=== PATIENT | female | born 1940 | race Caucasian/White ===

== ENCOUNTER 2017-03-28 21:43 | Observation (INO) ==
[2017-03-28] MEDS ORDERED: SALINE FLUSH 10ml SYRINGE IVF PRN (22:15)
--- NOTE | 2017-03-28 22:20 | Emergency Department Report ---
Weakness HPI - General Chief complaint: Weakness <[facility] 03/29/17 04:01> Stated complaint: Unable to walk, slow speaking [facility]> Time Seen by Provider: 03/28/17 22:02 <[facility] 04:01> Source: patient, family <Mariely Downing Campos 03/28/17 22:25> Mode of arrival: wheelchair <Mariely Downing Karl 03/28/17 22:25> Limitations: no limitations <SalinaMariely Karl Campos 03/28/17 22:25> - History of Present Illness HPI Narrative: Pt presents with weakness for the last 2 days and that she has been unable to stand or walk and was having to crawl to get around the house. the sister in law reports she had come over 2 days ago to use their blood pressure cuff as pt' s was not working and BP was 240 systolic. Pt called her PCP who siad they did not have time to see her. Sister in law reports having to help pt out of chair yesterday and today weakness has become even worse. <Mariely Downing 03/28/17 22:25> MD Complaint: generalized weakness <Mariely Downing 03/28/17 22:25> Onset (ago): day(s) <Mariely Downing 03/28/17 22:25> Duration: constant <Mariely Downing 03/28/17 22:25> Location: generalized <Mariely Downing 03/28/17 22:25> Severity: severe <Mariely Downing 03/28/17 22:25> Relieving factors: none <Mariely Downing 03/28/17 22:25> Exacerbating factors: none <Mariely Downing 03/28/17 22:25> Associated symptoms: denies other symptoms <Mariely Downing 03/28/17 22: 25> - Related Data Home Medications Medication Instructions Recorded Confirmed Fluoxetine HCl 40 mg PO DAILY #0 01/03/10 10/13/16 Vitamin E Mixed [Vitamin E] 400 unit PO DAILY #0 03/15/14 10/13/16 Codeine/Butalbital/ASA/Caffein 1 cap PO QID PRN #0 12/08/14 10/13/16 [Fiorinal with Codeine #3 Cap] Fluticasone Propionate [Flonase 1 puff EA NOSTRIL DAILY PRN #0 12/08/14 10/13/16 Allergy Relief] Vitamin B Complex Vit C No.3 [B 1 tab PO DAILY #0 12/08/14 10/13/16 Complex with Vitamin C] Calcium Carbonate [Calcium] 500 mg PO DAILY #0 10/06/15 10/13/16 Advil (Ibuprofen) 200 mg capsule 400 mg PO BID PRN #0 cap 10/06/16 10/13/16 Maxzide-25mg (triamterene 37.5 1 tab-cap PO QAM tab 10/06/16 10/13/16 mg-hydrochlorothiazide 25 mg) tablet aspirin 81 mg tablet,delayed 81 mg PO DAILY tab 10/06/16 10/13/16 release cholecalciferol (vitamin D3) 2,000 2,000 unit PO DAILY cap 10/06/16 10/13/16 unit capsule metoclopramide 5 mg tablet 5 mg PO .COMPLEX PRN 10/06/16 10/13/16 omega-3 fatty acids 1,000 mg 2,000 mg PO BID #0 cap 10/06/16 10/13/16 capsule Meclizine HCl [Motion Sickness 25 mg PO 03/28/17 Relief] Previous Rx's Medication Instructions Recorded Nitrostat (nitroglycerin) 0.4 mg 0.4 mg SL Q5M PRN #25 tab 10/06/16 sublingual tablet Xanax (alprazolam) 0.5 mg tablet 0.5 mg PO TID PRN #30 tab 10/06/16 Cozaar (losartan) 50 mg tablet 50 mg PO BID #180 tab 11/13/16 Calan SR (verapamil ER (SR)) 180 180 mg PO BID #180 tab 01/04/17 mg tablet amitriptyline 25 mg tablet 25 mg PO HS #90 tab 01/04/17 Lopressor (metoprolol tartrate) 50 mg PO BID #90 tab 02/12/17 100 mg tablet Zocor (simvastatin) 40 mg tablet 40 mg PO HS #90 tab 03/07/17 <eb 03/29/17 04:01> Allergies Allergy/AdvReac Type Severity Reaction Status Date / Time gabapentin Allergy Intermediate Verified 11/06/16 13:56 hydrocodone Allergy Intermediate rash Verified 11/06/16 13:33 MELITA Inhibitors Allergy Unknown Verified 11/06/16 13:33 atorvastatin Allergy Unknown Verified 11/06/16 13:33 ezetimibe Allergy Unknown Verified 11/06/16 13:33 levofloxacin [From Levaquin] AdvReac Intermediate tendonitis Verified 11/06/16 13:33 Sulfa (Sulfonamide AdvReac Intermediate GI issues Verified 11/06/16 13:33 Antibiotics) tramadol AdvReac Intermediate syncope?, Verified 11/06/16 13:33 nausea <03/29/17 04:01> Review of Systems All systems: reviewed and negative except as stated <Mariely Downing 22:25> Constitutional: Reports: as per HPI <Mariely Downing 03/28/17 22:25> Musculoskeletal: Reports: as per HPI <Mariely Downing 03/28/17 22:25> Neurological: Reports: as per HPI <Mariely Downing 03/28/17 22:25> [facility] Patient Stated Medical History Hearing Loss Yes Angina Yes Coronary Artery Disease Yes Hypertension Yes Valvular Heart Disease Yes: MVP Pneumonia Yes Gastroesophageal Reflux Yes Disease Other GI Yes: CONSTIPATION Hx Incontinence Yes: DRIBBLING Hx Urinary Tract Infection Yes Other Hematologic Yes: OSTEOPENIA Other Musculoskeletal Yes: OSTEOPENIA Sepsis Yes Depression Yes Post Menopausal Yes Clinic Medical History Renal insufficiency (Chronic Medical) Depression (Chronic Medical) Hx of thyroid nodule (Chronic Medical) right MVP (mitral valve prolapse) (Chronic Medical) Osteopenia (Chronic Medical) Hypercholesterolemia (Chronic Medical) HTN (hypertension) (Chronic Medical) CAD (coronary artery disease) (Chronic Medical) mid LAD lesion <03/29/17 04:01> Surgical History: D&C 1971. Tubal ligation 1972. CABG LAD 04/2007 <Mariely Downing 03/28/17 22:25> Family History: Family History Father , at age 83 Prostate cancer metastatic Mother , at age 51 Myocardial infarction Unknown CAD (coronary artery disease) Brother HTN (hypertension) Sister HTN (hypertension) Diabetes mellitus Brother Prostate cancer <August,Edson - 03/29/17 04:01> - Social History Smoking status: Never smoker <Mariely Downing 03/28/17 22:25> Physical Exam - Limitations Limitations: no limitations <Mariely Downing 03/28/17 22:25> - General General appearance: alert, lethargic <Mariely Downing 03/28/17 22:25> - Normal Exams: Head:: Normocephalic without trauma <Mariely Downing 03/28/17 22:25> Eyes:: Pupils are PERRLA w/ EOMI <Mariely Downing 03/28/17 22:25> Neck:: Full range of motion, without adenopathy <Mariely Downing [facility] 22:25> Chest/Respirations:: Clear all nicholas, with good airflow, and symmetry bilaterally <Mariely Downing [facility] 03/28/17 22:25> Cardiovascular:: Regular rate and rhythm, without murmur or gallop, Pulses 2+ all extremities, capillary refill, <2 seconds all extremities <Mariely Downing 03/28/17 22:25> Abdomen:: Bowel sounds positive, soft, non-tender, non-distended <Mariely Downing [facility] 03/28/17 22:25> Musculoskeletal:: No tenderness, or deformity noted, good range of motion, all extremities (equal leather currier strength) <Mariely Downing 03/28/17 22:25> Integumentary:: No rashes (pale, warm ,dry) <Mariely Downing [facility] 03/28/17 22: 25> Neurological:: Patient is alert (speech is slow but clear), and oriented, cranial nerves, motor/sensory/cerebellar, exams w/o gross deficits, to observation <Mariely Downing 03/28/17 22:25> Psychiatric:: Patient exhibits, appropriate attention, emotion and affect < Mariely Downing 03/28/17 22:25> Course - Consultations Consultation #1: [place] Telemed: Will admit pt for continued observation and to complete CVA work up. <03/29/17 03:57> Time: 03:41 <eb - 03/29/17 03:41> Vital Signs Temperature 97.9 F 03/28/17 21:43 Pulse Rate 56 L 03/28/17 21:43 Respiratory Rate 20 03/28/17 21:43 Blood Pressure 174/81 H 03/28/17 21:43 Pulse Oximetry 97 03/28/17 21:43 Temperature 97.9 F 03/28/17 21:43 Pulse Rate 54 L 03/29/17 02:46 Respiratory Rate 16 03/29/17 02:46 Blood Pressure 174/80 H 03/29/17 02:46 Pulse Oximetry 99 03/29/17 01:45 <Mariely Downing - 03/28/17 22:17> Vital Signs Temperature 97.9 F 03/28/17 21:43 Pulse Rate 56 L 03/28/17 21:43 Respiratory Rate 20 03/28/17 21:43 Blood Pressure 174/81 H 03/28/17 21:43 Pulse Oximetry 97 03/28/17 21:43 Temperature 97.9 F 03/28/17 21:43 Pulse Rate 54 L 03/29/17 02:46 Respiratory Rate 16 03/29/17 02:46 Blood Pressure 174/80 H 03/29/17 02:46 Pulse Oximetry 99 03/29/17 01:45 < - 03/28/17 23:16> Weakness - MDM Narrative Medical decision making narrative: Pt with no obvious cause of acute weakness. Weakness is not focal. No evidence of acute infx, UTI, or electrolyte disturbance. Head CT shows no acute pathology. CXR shows a possible cardiac effusion. Will obtain Chest CT to eval for occult PNA vs effusion. After review of all of pts Hx, PE, labs, and rads, no obvious cause of pts sx found. Strong concern still for abrupt onset of weakness and progression. Discussed with hospitalist, who will admit to complete workup for CVA as most likely dx. Discussed with family who agree with POC and are grateful that pt is being worked up further. <[facility] 03/29/17 04:01> - Differential Diagnosis Differential diagnosis: Likely: anemia, hypoglycemia, hypothyroidism, dehydration <Mariely Downing/20/17 22:25> - Lab Data Result diagrams: 03/28/17 22:38 03/28/17 22:38 <Edson Sewell - 03/29/17 04:01> Lab Results 03/28/17 03/28/17 03/28/17 Range/Units 22:38 22:38 22:38 WBC 7.9 (4.5-11.0) T/MM3 Corrected WBC Cancelled RBC 4.35 (4.00-5.20) M/MM3 Hgb 13.5 (12-16) GM/DL Hct 41.0 (36-46) % MCV 94.3 (80-100) UM3 MCH 31.0 (26-34) UUG MCHC 32.9 (31-37) GM/DL RDW Std Deviation 40.0 (36.9-50.2) FL Plt Count 212 (130-400) T/MM3 MPV 9.5 (9.4-12.4) UM3 Immature Gran % (Auto) 0.1 (0.0-0.5) % Neut % (Auto) 53.0 (33-66) % Lymph % (Auto) 36.7 (23-45) % Forrest % (Auto) 7.5 (0-9.0) % Eos % (Auto) 2.2 (0-4) % Baso % (Auto) 0.5 (0-2) % Neut # (Auto) 4.1 (1.8-7.7) T/MM3 Lymph # (Auto) 2.8 (1-4.8) T/MM3 Forrest # (Auto) 0.6 (0-0.8) T/MM3 Eos # (Auto) 0.2 (0-0.5) T/MM3 Baso # (Auto) 0.0 (0-0.2) T/MM3 Abs Immat Gran (auto) 0.01 (0.00-0.03) T/MM3 Neutrophils % (Manual) Cancelled Band Neutrophils % Cancelled Lymphocytes % (Manual) Cancelled Reactive Lymphs % Cancelled Monocytes % (Manual) Cancelled Eosinophils % (Manual) Cancelled Basophils % (Manual) Cancelled Metamyelocytes % Cancelled Myelocytes % Cancelled Promyelocytes % Cancelled Blast Cells % Cancelled Neutrophils # (Manual) Cancelled Band Neutrophils # Cancelled Lymphocytes # (Manual) Cancelled Abs React Lymphs (Man) Cancelled Monocytes # (Manual) Cancelled Eosinophils # (Manual) Cancelled Basophils # (Manual) Cancelled Metamyelocytes # Cancelled Myelocytes # Cancelled Promyelocytes # Cancelled Plasma Cell # (Manual) Cancelled Nucleated RBCs Cancelled Hypersegmented Neuts Cancelled Hyposegmented Neuts Cancelled Hypogranular Neuts Cancelled Prolymphocytes Cancelled Blast Cells # Cancelled Plasma Cells Cancelled Smudge Cells Cancelled Toxic Granulation Cancelled Toxic Vacuolation Cancelled Dohle Bodies Cancelled Leila Rods Cancelled Clumped Platelets Cancelled Giant Platelets Cancelled Dimorphic RBCs Cancelled Polychromasia Cancelled Hypochromasia Cancelled Poikilocytosis Cancelled Basophilic Stippling Cancelled Anisocytosis Cancelled Microcytosis Cancelled Macrocytosis Cancelled Spherocytes Cancelled Pappenheimer Bodies Cancelled Sickle Cells Cancelled Target Cells Cancelled Tear Drop Cells Cancelled Ovalocytes Cancelled Stomatocytes Cancelled Helmet Cells Cancelled Segura-Spearfish Bodies Cancelled [place] Rings Cancelled [place] Cells Cancelled Crenated Cell Cancelled Acanthocytes (Spur) Cancelled Rouleaux Cancelled Schistocytes Cancelled RBC Morph Comment Cancelled Turbidity < 20 (0-20) Sodium 143 (134-144) MEQ/L Potassium 3.6 (3.6-5) MEQ/L Chloride 104 (98-107) MEQ/L Carbon Dioxide 27 (22-30) MEQ/L Anion Gap 12 (5-15) MEQ/L BUN 14.0 (7-17) MG/DL Creatinine 0.8 (0.7-1.2) MG/DL GFR Calculation 69 BUN/Creatinine Ratio 18 (6-26) RATIO Glucose 95 (65-110) MG/DL Calculated Osmolality 276 (261-280) MOSM/KG Calcium 9.6 (8.4-10.2) MG/DL Total Bilirubin 0.40 (0.20-1.30) MG/DL Icterus Index < 2 (0-7) AST 29 (14-36) U/L ALT 25 (9-52) U/L Alkaline Phosphatase 117 (38-126) U/L Creatine Kinase (30-135) U/L Troponin I < 0.012 (0-0.12) ng/ml B-Natriuretic Peptide 405 H (0-175) pg/mL Total Protein 7.2 (6.3-8.2) G/DL Albumin 4.2 (3.5-5.0) G/DL Globulin 3.0 (2.4-3.6) G/DL Albumin/Globulin Ratio 1.4 (1.1-2.2) RATIO Plasma Lactate 1.1 (0.6-2.2) MMOL/L TSH 1.79 (0.47-4.68) MIU/L Specimen Hemolysis < 15 < 15 (0-25) Ur Collection Type Urine Color (YELLOW) Urine Clarity Urine pH (5.0-8.0) Ur Specific Story (1.015-1.025) Urine Protein (NEGATIVE) Urine Glucose (UA) (NEGATIVE) Urine Ketones (NEGATIVE) Urine Occult Blood (NEGATIVE) Urine Nitrate (NEGATIVE) Urine Bilirubin (NEGATIVE) Urine Urobilinogen (NORMAL) EU/DL Ur Leukocyte Esterase (NEGATIVE) Urinalysis Comment 03/28/17 03/28/17 03/29/17 Range/Units 22:38 23:14 03:21 WBC (4.5-11.0) T/MM3 Corrected WBC RBC (4.00-5.20) M/MM3 Hgb (12-16) GM/DL Hct (36-46) % MCV (80-100) UM3 MCH (26-34) UUG MCHC (31-37) GM/DL RDW Std Deviation (36.9-50.2) FL Plt Count (130-400) T/MM3 MPV (9.4-12.4) UM3 Immature Gran % (Auto) (0.0-0.5) % Neut % (Auto) (33-66) % Lymph % (Auto) (23-45) % Forrest % (Auto) (0-9.0) % Eos % (Auto) (0-4) % Baso % (Auto) (0-2) % Neut # (Auto) (1.8-7.7) T/MM3 Lymph # (Auto) (1-4.8) T/MM3 Forrest # (Auto) (0-0.8) T/MM3 Eos # (Auto) (0-0.5) T/MM3 Baso # (Auto) (0-0.2) T/MM3 Abs Immat Gran (auto) (0.00-0.03) T/MM3 Neutrophils % (Manual) Band Neutrophils % Lymphocytes % (Manual) Reactive Lymphs % Monocytes % (Manual) Eosinophils % (Manual) Basophils % (Manual) Metamyelocytes % Myelocytes % Promyelocytes % Blast Cells % Neutrophils # (Manual) Band Neutrophils # Lymphocytes # (Manual) Abs React Lymphs (Man) Monocytes # (Manual) Eosinophils # (Manual) Basophils # (Manual) Metamyelocytes # Myelocytes # Promyelocytes # Plasma Cell # (Manual) Nucleated RBCs Hypersegmented Neuts Hyposegmented Neuts Hypogranular Neuts Prolymphocytes Blast Cells # Plasma Cells Smudge Cells Toxic Granulation Toxic Vacuolation Dohle Bodies Leila Rods Clumped Platelets Giant Platelets Dimorphic RBCs Polychromasia Hypochromasia Poikilocytosis Basophilic Stippling Anisocytosis Microcytosis Macrocytosis Spherocytes Pappenheimer Bodies Sickle Cells Target Cells Tear Drop Cells Ovalocytes Stomatocytes Helmet Cells Segura-Spearfish Bodies [place] Rings Jaqueline Cells Crenated Cell Acanthocytes (Spur) Rouleaux Schistocytes RBC Morph Comment Turbidity (0-20) Sodium (134-144) MEQ/L Potassium (3.6-5) MEQ/L Chloride (98-107) MEQ/L Carbon Dioxide (22-30) MEQ/L Anion Gap (5-15) MEQ/L BUN (7-17) MG/DL Creatinine (0.7-1.2) MG/DL GFR Calculation BUN/Creatinine Ratio (6-26) RATIO Glucose (65-110) MG/DL Calculated Osmolality (261-280) MOSM/KG Calcium (8.4-10.2) MG/DL Total Bilirubin (0.20-1.30) MG/DL Icterus Index (0-7) AST (14-36) U/L ALT (9-52) U/L Alkaline Phosphatase (38-126) U/L Creatine Kinase 77 (30-135) U/L Troponin I (0-0.12) ng/ml B-Natriuretic Peptide (0-175) pg/mL Total Protein (6.3-8.2) G/DL Albumin (3.5-5.0) G/DL Globulin (2.4-3.6) G/DL Albumin/Globulin Ratio (1.1-2.2) RATIO Plasma Lactate 1.2 (0.6-2.2) MMOL/L TSH (0.47-4.68) MIU/L Specimen Hemolysis (0-25) Ur Collection Type Urine, catheter Urine Color Yellow (YELLOW) Urine Clarity Sl cloudy Urine pH 6.5 (5.0-8.0) Ur Specific Story <=1.005 L (1.015-1.025) Urine Protein Negative (NEGATIVE) Urine Glucose (UA) Negative (NEGATIVE) Urine Ketones Negative (NEGATIVE) Urine Occult Blood Negative (NEGATIVE) Urine Nitrate Negative (NEGATIVE) Urine Bilirubin Negative (NEGATIVE) Urine Urobilinogen 0.2 (NORMAL) EU/DL Ur Leukocyte Esterase Negative (NEGATIVE) Urinalysis Comment Microscopic not ind. <Mariely Downing - 03/28/17 22:17> Lab Results 03/28/17 03/28/17 03/28/17 Range/Units 22:38 22:38 22:38 WBC 7.9 (4.5-11.0) T/MM3 Corrected WBC Cancelled RBC 4.35 (4.00-5.20) M/MM3 Hgb 13.5 (12-16) GM/DL Hct 41.0 (36-46) % MCV 94.3 (80-100) UM3 MCH 31.0 (26-34) UUG MCHC 32.9 (31-37) GM/DL RDW Std Deviation 40.0 (36.9-50.2) FL Plt Count 212 (130-400) T/MM3 MPV 9.5 (9.4-12.4) UM3 Immature Gran % (Auto) 0.1 (0.0-0.5) % Neut % (Auto) 53.0 (33-66) % Lymph % (Auto) 36.7 (23-45) % Forrest % (Auto) 7.5 (0-9.0) % Eos % (Auto) 2.2 (0-4) % Baso % (Auto) 0.5 (0-2) % Neut # (Auto) 4.1 (1.8-7.7) T/MM3 Lymph # (Auto) 2.8 (1-4.8) T/MM3 Forrest # (Auto) 0.6 (0-0.8) T/MM3 Eos # (Auto) 0.2 (0-0.5) T/MM3 Baso # (Auto) 0.0 (0-0.2) T/MM3 Abs Immat Gran (auto) 0.01 (0.00-0.03) T/MM3 Neutrophils % (Manual) Cancelled Band Neutrophils % Cancelled Lymphocytes % (Manual) Cancelled Reactive Lymphs % Cancelled Monocytes % (Manual) Cancelled Eosinophils % (Manual) Cancelled Basophils % (Manual) Cancelled Metamyelocytes % Cancelled Myelocytes % Cancelled Promyelocytes % Cancelled Blast Cells % Cancelled Neutrophils # (Manual) Cancelled Band Neutrophils # Cancelled Lymphocytes # (Manual) Cancelled Abs React Lymphs (Man) Cancelled Monocytes # (Manual) Cancelled Eosinophils # (Manual) Cancelled Basophils # (Manual) Cancelled Metamyelocytes # Cancelled Myelocytes # Cancelled Promyelocytes # Cancelled Plasma Cell # (Manual) Cancelled Nucleated RBCs Cancelled Hypersegmented Neuts Cancelled Hyposegmented Neuts Cancelled Hypogranular Neuts Cancelled Prolymphocytes Cancelled Blast Cells # Cancelled Plasma Cells Cancelled Smudge Cells Cancelled Toxic Granulation Cancelled Toxic Vacuolation Cancelled Dohle Bodies Cancelled Leila Rods Cancelled Clumped Platelets Cancelled Giant Platelets Cancelled Dimorphic RBCs Cancelled Polychromasia Cancelled Hypochromasia Cancelled Poikilocytosis Cancelled Basophilic Stippling Cancelled Anisocytosis Cancelled Microcytosis Cancelled Macrocytosis Cancelled Spherocytes Cancelled Pappenheimer Bodies Cancelled Sickle Cells Cancelled Target Cells Cancelled Tear Drop Cells Cancelled Ovalocytes Cancelled Stomatocytes Cancelled Helmet Cells Cancelled Segura-[place]ar[place] Bodies Cancelled [place] Rings Cancelled Jaqueline Cells Cancelled Crenated Cell Cancelled Acanthocytes (Spur) Cancelled Rouleaux Cancelled Schistocytes Cancelled RBC Morph Comment Cancelled Turbidity < 20 (0-20) Sodium 143 (134-144) MEQ/L Potassium 3.6 (3.6-5) MEQ/L Chloride 104 (98-107) MEQ/L Carbon Dioxide 27 (22-30) MEQ/L Anion Gap 12 (5-15) MEQ/L BUN 14.0 (7-17) MG/DL Creatinine 0.8 (0.7-1.2) MG/DL GFR Calculation 69 BUN/Creatinine Ratio 18 (6-26) RATIO Glucose 95 (65-110) MG/DL Calculated Osmolality 276 (261-280) MOSM/KG Calcium 9.6 (8.4-10.2) MG/DL Total Bilirubin 0.40 (0.20-1.30) MG/DL Icterus Index < 2 (0-7) AST 29 (14-36) U/L ALT 25 (9-52) U/L Alkaline Phosphatase 117 (38-126) U/L Creatine Kinase (30-135) U/L Troponin I < 0.012 (0-0.12) ng/ml B-Natriuretic Peptide 405 H (0-175) pg/mL Total Protein 7.2 (6.3-8.2) G/DL Albumin 4.2 (3.5-5.0) G/DL Globulin 3.0 (2.4-3.6) G/DL Albumin/Globulin Ratio 1.4 (1.1-2.2) RATIO Plasma Lactate 1.1 (0.6-2.2) MMOL/L TSH 1.79 (0.47-4.68) MIU/L Specimen Hemolysis < 15 < 15 (0-25) Ur Collection Type Urine Color (YELLOW) Urine Clarity Urine pH (5.0-8.0) Ur Specific Story (1.015-1.025) Urine Protein (NEGATIVE) Urine Glucose (UA) (NEGATIVE) Urine Ketones (NEGATIVE) Urine Occult Blood (NEGATIVE) Urine Nitrate (NEGATIVE) Urine Bilirubin (NEGATIVE) Urine Urobilinogen (NORMAL) EU/DL Ur Leukocyte Esterase (NEGATIVE) Urinalysis Comment 03/28/17 03/28/17 03/29/17 Range/Units 22:38 23:14 03:21 WBC (4.5-11.0) T/MM3 Corrected WBC RBC (4.00-5.20) M/MM3 Hgb (12-16) GM/DL Hct (36-46) % MCV (80-100) UM3 MCH (26-34) UUG MCHC (31-37) GM/DL RDW Std Deviation (36.9-50.2) FL Plt Count (130-400) T/MM3 MPV (9.4-12.4) UM3 Immature Gran % (Auto) (0.0-0.5) % Neut % (Auto) (33-66) % Lymph % (Auto) (23-45) % Forrest % (Auto) (0-9.0) % Eos % (Auto) (0-4) % Baso % (Auto) (0-2) % Neut # (Auto) (1.8-7.7) T/MM3 Lymph # (Auto) (1-4.8) T/MM3 Forrest # (Auto) (0-0.8) T/MM3 Eos # (Auto) (0-0.5) T/MM3 Baso # (Auto) (0-0.2) T/MM3 Abs Immat Gran (auto) (0.00-0.03) T/MM3 Neutrophils % (Manual) Band Neutrophils % Lymphocytes % (Manual) Reactive Lymphs % Monocytes % (Manual) Eosinophils % (Manual) Basophils % (Manual) Metamyelocytes % Myelocytes % Promyelocytes % Blast Cells % Neutrophils # (Manual) Band Neutrophils # Lymphocytes # (Manual) Abs React Lymphs (Man) Monocytes # (Manual) Eosinophils # (Manual) Basophils # (Manual) Metamyelocytes # Myelocytes # Promyelocytes # Plasma Cell # (Manual) Nucleated RBCs Hypersegmented Neuts Hyposegmented Neuts Hypogranular Neuts Prolymphocytes Blast Cells # Plasma Cells Smudge Cells Toxic Granulation Toxic Vacuolation Dohle Bodies Leila Rods Clumped Platelets Giant Platelets Dimorphic RBCs Polychromasia Hypochromasia Poikilocytosis Basophilic Stippling Anisocytosis Microcytosis Macrocytosis Spherocytes Pappenheimer Bodies Sickle Cells Target Cells Tear Drop Cells Ovalocytes Stomatocytes Helmet Cells Segura-Spearfish Bodies [place] Rings [place] Cells Crenated Cell Acanthocytes (Spur) Rouleaux Schistocytes RBC Morph Comment Turbidity (0-20) Sodium (134-144) MEQ/L Potassium (3.6-5) MEQ/L Chloride (98-107) MEQ/L Carbon Dioxide (22-30) MEQ/L Anion Gap (5-15) MEQ/L BUN (7-17) MG/DL Creatinine (0.7-1.2) MG/DL GFR Calculation BUN/Creatinine Ratio (6-26) RATIO Glucose (65-110) MG/DL Calculated Osmolality (261-280) MOSM/KG Calcium (8.4-10.2) MG/DL Total Bilirubin (0.20-1.30) MG/DL Icterus Index (0-7) AST (14-36) U/L ALT (9-52) U/L Alkaline Phosphatase (38-126) U/L Creatine Kinase 77 (30-135) U/L Troponin I (0-0.12) ng/ml B-Natriuretic Peptide (0-175) pg/mL Total Protein (6.3-8.2) G/DL Albumin (3.5-5.0) G/DL Globulin (2.4-3.6) G/DL Albumin/Globulin Ratio (1.1-2.2) RATIO Plasma Lactate 1.2 (0.6-2.2) MMOL/L TSH (0.47-4.68) MIU/L Specimen Hemolysis (0-25) Ur Collection Type Urine, catheter Urine Color Yellow (YELLOW) Urine Clarity Sl cloudy Urine pH 6.5 (5.0-8.0) Ur Specific Story <=1.005 L (1.015-1.025) Urine Protein Negative (NEGATIVE) Urine Glucose (UA) Negative (NEGATIVE) Urine Ketones Negative (NEGATIVE) Urine Occult Blood Negative (NEGATIVE) Urine Nitrate Negative (NEGATIVE) Urine Bilirubin Negative (NEGATIVE) Urine Urobilinogen 0.2 (NORMAL) EU/DL Ur Leukocyte Esterase Negative (NEGATIVE) Urinalysis Comment Microscopic not ind. < - 03/28/17 23:16> - Radiology Data Attestation: I reviewed the patient's radiology results. < - 02:36> CXR: Poor insp effort. Hazy cardiac outline; increased from prior. Possible cardiac effusion. CT Head: FINDINGS: Brain: Cerebral cortical and cerebellar hemispheric volume loss. 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 No intracranial hemorrhage. Ventriculomegaly commensurate with the degree of through cortical volume loss. Negative cisterna magna. Ventricles: See above. Bones/joints: Unremarkable. No acute fracture. Soft tissues: Unremarkable. Sinuses: Unremarkable as visualized. No acute sinusitis. Mastoid air cells: Unremarkable as visualized. No mastoid effusion. IMPRESSION: 1. No evidence of intracranial hemorrhage, mass or obstructive hydrocephalus. 2. 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 CT Chest: FINDINGS: Lungs: Linear opacities located in lung bases which may represent areas of atelectasis and/or scarring. No pleural effusion. No evidence of pulmonary interstitial or alveolar edema. Pleural space: No pleural effusion or pneumothorax. Heart: Patient status post coronary arterial bypass surgery. Cardiac size is enlarged. No pericardial effusion. Moderate coronary calcification. Mediastinum: Moderate hiatal hernia. Bones/joints: Midline sternotomy. The Spondylotic changes thoracic spine. No acute fracture. No dislocation. Soft tissues: Unremarkable. Vasculature: Atheromatous changes involving the thoracic aorta. No evidence of an aneurysm or dissection. Pulmonary arterial system shows no evidence of clot in the main pulmonary artery and in the proximal segmental branches. The distal segmental and subsegmental branches are poorly filled with contrast. Lymph nodes: Unremarkable. No enlarged lymph nodes. IMPRESSION: 1. The patient is status post coronary arterial bypass surgery. Cardiomegaly without evidence of congestive heart failure. No pleural effusion. 2. No evidence of pulmonary embolic disease involving the main and proximal segmental branches. <03/29/17 03:43> - EKG Data EKG #1 EKG attestation: Yes: I reviewed and interpreted this EKG. < 23:16> EKG shows normal: sinus rhythm, axis, ST-T waves <03/28/17 23:16 > Rate: bradycardia <03/28/17 23:16> [place]/QRS: RBBB <03/28/17 23:16> Interpretation: unchanged when compared to prior tracing (date) (13 OCT 2016) <03/28/17 23:16> Disposition Clinical Impression: Weakness 03/29/17 03:57> Disposition: 02 To OBS [facility] [place] <03/29/17 03:57> Print Language: Indian <03/29/17 03:57> Instructions: <03/29/17 04:01> Prescriptions: No Action Vitamin E Mixed [Vitamin E] 400 unit PO DAILY #0 Vitamin B Complex Vit C No.3 [B Complex with Vitamin C] 1 tab PO DAILY #0 Fluticasone Propionate [Flonase Allergy Relief] 1 puff EA NOSTRIL DAILY PRN # 0 PRN Reason: PRN ORDERS Calcium Carbonate [Calcium] 500 mg PO DAILY #0 Meclizine HCl [Motion Sickness Relief] 25 mg PO Fluoxetine HCl 40 mg PO DAILY #0 Codeine/Butalbital/ASA/Caffein [Fiorinal with Codeine #3 Cap] 1 cap PO QID PRN #0 PRN Reason: PRN ORDERS omega-3 fatty acids 1,000 mg capsule 2,000 mg PO BID #0 cap aspirin 81 mg tablet,delayed release 81 mg PO DAILY tab Maxzide-25mg (triamterene 37.5 mg-hydrochlorothiazide 25 mg) tablet 1 tab- cap PO QAM tab cholecalciferol (vitamin D3) 2,000 unit capsule 2,000 unit PO DAILY cap Nitrostat (nitroglycerin) 0.4 mg sublingual tablet 0.4 mg SL Q5M PRN #25 tab PRN Reason: chest pain Cozaar (losartan) 50 mg tablet 50 mg PO BID #180 tab amitriptyline 25 mg tablet 25 mg PO HS #90 tab Calan SR (verapamil ER (SR)) 180 mg tablet 180 mg PO BID #180 tab Advil (Ibuprofen) 200 mg capsule 400 mg PO BID PRN #0 cap PRN Reason: PAIN metoclopramide 5 mg tablet 5 mg PO .COMPLEX PRN PRN Reason: Acid Reflux Xanax (alprazolam) 0.5 mg tablet 0.5 mg PO TID PRN #30 tab PRN Reason: ANXIETY Lopressor (metoprolol tartrate) 100 mg tablet 50 mg PO BID #90 tab Zocor (simvastatin) 40 mg tablet 40 mg PO HS #90 tab <AugustDukeEdson 04:01> Referrals: Riley De La Torre MD [Primary Care Provider] - <AugustEdson 03/29/17 04:01> Forms: <AugustEdson 03/29/17 04:01> Time of Disposition: 03:57 <AugustEdson 03/29/17 03:57> - Seen By: physician <AugustEdson 03/29/17 03:57>
[2017-03-29] MEDS ORDERED: SALINE FLUSH 10ml SYRINGE ONE ×3 (02:41→11:26)
[2017-03-29] MEDS ORDERED: IOHEXOL 300mg/ml 75ml INJECTION ONE (02:41)
[2017-03-29] MEDS ORDERED: NS 100 ML ONE (02:41)
[2017-03-29] MEDS ORDERED: DOCUSATE SODIUM 100 MG CAPSULE PO PRN (04:43)
[2017-03-29] MEDS ORDERED: ONDANSETRON 4 MG/2 ML INJECTION IVP PRN (04:43)
[2017-03-29] MEDS ORDERED: ACETAMINOPHEN 325 MG TABLET PO PRN (04:43)
[2017-03-29] MEDS ORDERED: D5-1/2NS 1,000 ML IV SCH (04:43)
[2017-03-29 05:24] VITALS: BMI 28.5
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
[2017-03-29] MEDS: ASPIRIN *EC* 325 MG TABLET PO SCH ×2 (07:40→10:29)
--- NOTE | 2017-03-29 08:00 | CT Scan Report ---
Indication: Dyspnea, weakness, ?cardiac effusion on CXR PROCEDURE: CT chest wo/w con: Encounter: Initial Comparison: None Technique: Axial CT images were performed through the chest before and after the administration of intravenous contrast. Coronal and sagittal two-dimensional reformats. Automated Exposure Control and Iterative Reconstruction dose reducing techniques were utilized. Contrast: Omnipaque 300 74 mL Findings: There is mild atelectasis in the lung bases. No pneumothorax or focal consolidative pneumonia. No pulmonary masses. The central airways are patent. Exam was performed in expiration. No axillary or mediastinal adenopathy. Heart is moderately enlarged without pericardial effusion. Poststernotomy changes. Moderate sized hiatal hernia. The upper abdomen shows a large nonenhancing low-attenuation right renal lesion probably representing a cyst, incompletely evaluated. Bone windows are unremarkable. Impression: No acute disease process seen in the chest. Cardiomegaly. There is a preliminary report by [facility]. .
--- NOTE | 2017-03-29 08:02 | XRay Report ---
Indication: Weakness PROCEDURE: XR chest 1V: Encounter: Initial Comparison: Chest x-ray dated October 13, [address] from the same date as this exam. Findings: Hazy atelectasis in both lung bases, left greater than right. No pneumothorax or pleural effusion. Cardiac silhouette is moderately enlarged. Mediastinal contours are slightly prominent. Pulmonary vascularity is normal. Tortuous thoracic aorta. Poststernotomy changes. Impression: Bibasilar atelectasis. Enlargement of the cardiac silhouette which is shown to be cardiomegaly on CT. .
--- NOTE | 2017-03-29 08:04 | CT Scan Report ---
Indication: weakness htn PROCEDURE: CT head/brain wo con: Encounter: Initial Comparison: December 01, 2015 Technique: Axial CT images through the head were performed without contrast. Iterative Reconstruction dose reducing technique was utilized. FINDINGS: Mild generalized atrophy. The ventricles are of normal size, shape, and contour for the patient's age. Physiologic basal ganglia calcifications. There are numerous areas of low attenuation in the white matter which most likely represent changes from chronic microvascular ischemia. The brainstem, cerebellum, and cerebral hemispheres otherwise have a normal morphology and CT attenuation. There is no evidence of midline displacement. No hemorrhage, signs of acute territorial stroke, mass effect, mass lesions, or edema is evident. The visualized portions of the skull base, midface, and calvarium demonstrate no abnormality. The paranasal sinuses are well aerated and free of significant disease. The tympanic and mastoid cavities appear normal. IMPRESSION: No acute intracranial abnormality or hemorrhage. There is a preliminary report by [employer]. .
--- NOTE | 2017-03-29 10:05 | Ultrasound Report ---
Indication: weakness with possible cva PROCEDURE: US carotid doppler BI: TECHNIQUE: Grayscale, color and duplex Doppler imaging was performed of the carotid systems bilaterally. Velocities in cm/sec - validated velocity measurements with angiographic measurements, velocity criteria are extrapolated from diameter data as defined by the Society of Radiologists in Ultrasound Consensus Conference Radiology 2003; 229;340-346. RIGHT: PSV ICA 86.8 EDV ICA 16.3 PSV CCA 78.2 EDV CCA 12.9 SVR 1.1 PSV ECA 103 ICA Diameter reduction 10%-30% (1.0-1.2 PSV<110)% LEFT: PSV ICA 84 EDV ICA 18 PSV CCA 78.2 EDV CCA 15.4 SVR 1.1 PSV ECA 65.4 ICA Diameter reduction 10%-30% (1.0-1.2 PSV<110)% The right vertebral artery is patent with cephalic flow. The left vertebral artery is patent with cephalic flow. Interval wall thickening in both common carotid arteries. Mild calcified plaque in both carotid bulbs and proximal ICAs without velocity elevation. IMPRESSION: No hemodynamically significant carotid stenosis. .
--- NOTE | 2017-03-29 12:55 | Magnetic Resonance Report ---
Indication: weakness, changed speech PROCEDURE: MR head/brain wo/w con: Encounter: Initial Comparisons: Head CT dated March 29, 2017 Technique: Multiplanar, multisequence, MR imaging of the head with and without contrast was acquired. Contrast: 17 mL of ProHance FINDINGS: Motion artifact limits the exam. There is a T1 isointense, T2 mild hyperintensity extra-axial lesion along the anterior aspect of the falx near the cribriform plate above the ethmoid air cells. This shows uniform post contrast enhancement with a dural tail. The mass measures 2.5 x 1.6 x 2.2 cm in size. There is no surrounding edema within the adjacent brain parenchyma. The ventricles are of normal size, shape, and contour for the patient's age. There are numerous nonspecific areas of T2-weighted and T2 FLAIR weighted signal abnormality in the deep frontoparietal white matter that most likely represent small vessel ischemic disease. This is advanced for the patient's age. The brain stem, cerebellum, and cerebral hemispheres otherwise have a normal morphologic appearance as well as MR signal intensity on all pulse sequences. There are no areas of restricted diffusion to suggest an acute infarct. There is no evidence of an intracranial hemorrhage, or hydrocephalus. The visualized portions of the orbits, calvarium, paranasal sinuses, and skull base demonstrate no significant abnormality. IMPRESSION: 1. No acute infarct. Advanced white matter disease for age likely due to chronic microvascular ischemia. 2. 2.5 cm midline frontal extra-axial mass most likely representing a benign meningioma. .
[2017-03-29] MEDS ORDERED: IBUPROFEN 400 MG TABLET PO PRN (13:43)
[2017-03-29] MEDS ORDERED: NITROGLYCERIN 0.4 MG SUBLINGUAL TABLET SL PRN (13:43)
[2017-03-29] MEDS ORDERED: FLUTICASONE NASAL SPRAY 50mcg EA NOSTRIL PRN (13:43)
[2017-03-29] MEDS: ASPIRIN *EC* 81 MG TABLET PO SCH (15:22)
[2017-03-29] MEDS: TRIAMTERENE/HCTZ 37.5 MG-25 MG TABLET PO SCH (15:31)
[2017-03-29] MEDS ORDERED: SIMVASTATIN 40 MG TABLET PO SCH (21:00)
[2017-03-29] MEDS: LOSARTAN 50 MG TABLET PO SCH (22:08)
[2017-03-29] MEDS: OMEGA-3 ACID ESTERS 1 GM CAPSULE PO SCH (22:09)
[2017-03-30 08:41] VITALS: BP 158/72; RESP 16; TEMP 97.3; O2SAT 97
--- NOTE | 2017-03-30 08:42 | Echocardiogram ---
DATE OF PROCEDURE March 29, [address] Arturo Wu This is a two-dimensional echo with spectral Doppler, color-flow and M-mode. It was obtained in a patient with CVA. Left atrial dimension is normal. Left ventricular end-diastolic dimension is normal. Left ventricle wall thickness is normal. LV systolic function is normal with ejection fraction of 62%. Right atrium is normal. Right ventricle is normal. Aortic root dimension is normal. Mitral valve is morphologically normal with mild mitral regurgitation. Aortic valve is a trileaflet structure with no stenosis. Mild aortic insufficiency is present. Tricuspid valve shows mild tricuspid regurgitation with mild pulmonary hypertension with estimated pulmonary artery systolic pressure of 35. Pulmonary valve shows no pulmonary insufficiency. There is no pericardial effusion. Grossly, there is no intracardiac thrombus or mass.. Agitated saline was injected which showed no evidence of [id number] shunt. IMPRESSION 1. No evidence of [id number] shunt using agitated saline. 2. Grossly no intracardiac thrombus or mass. 3. Normal LV systolic function with ejection fraction of 62%. 4. Mild mitral regurgitation. 5. Mild tricuspid regurgitation with mild pulmonary hypertension with estimated pulmonary artery systolic pressure of 35. 6. Mild aortic insufficiency. [facility]
[2017-03-30] MEDS: TRIAMTERENE/HCTZ 37.5 MG-25 MG TABLET PO SCH (08:52)
[2017-03-30] MEDS: ASPIRIN *EC* 81 MG TABLET PO SCH (08:53)
[2017-03-30] MEDS: OMEGA-3 ACID ESTERS 1 GM CAPSULE PO SCH (08:54)
[2017-03-30] MEDS ORDERED: VITAMIN B COMPLEX + C TABLET PO SCH (09:00)
[2017-03-30] MEDS ORDERED: CALCIUM CARBONATE 500 MG TABLET PO SCH (09:00)
[2017-03-30] MEDS ORDERED: FLUoxetine 20 MG CAPSULE PO SCH (09:00)
[2017-03-30] MEDS: LOSARTAN 50 MG TABLET PO SCH (09:01)
[2017-03-30] MEDS ORDERED: PROPOFOL 500 MG/50 ML VIAL IV ONE (09:46)
[2017-03-30] MEDS ORDERED: LIDOCAINE 1% (10mg/ml) 30ml SDV INJ ONE (09:47)
[2017-03-30] MEDS ORDERED: BUPIVACAINE 0.25% (2.5mg/ml) PF 30ml INJECTION ONE (09:47)
--- NOTE | 2017-03-30 10:56 | Consultation ---
NEUROLOGY CONSULTATION DATE OF CONSULTATION 03/30/[address] Ni The patient's chief complaint is weakness and confusion. HISTORY OF PRESENT ILLNESS The patient is a 77-year-old female with the history of hypertension, coronary artery disease, depression and thyroid problems. The patient was found to have excessive generalized weakness and mild confusion by her family. The patient normally lives by herself. She has been able to take care of herself fine until recently. The patient's confusion has been fluctuating in severity with good and bad times. She has had no focal weakness or numbness. She denies having lower back pain or headache. She denies having any fall or injuries. The patient had a CT of the head in the ER that showed no acute abnormalities. The patient then had an MRI of the brain that showed no acute stroke. There was evidence of enlarged ventricles and moderate brain atrophy associated with that. Her lab workup was unremarkable for sepsis or dehydration. The patient' s condition has been slowly improving with some fluctuation in her mental functioning. She continues to have difficulty standing and walking associated with some mild weakness in the lower extremities. She has had no new lower back pain or achiness. She has had no problem with urination or bowel movement. PHYSICAL EXAMINATION The patient was awake, alert, oriented x 2. Pupils were round, reactive and equal. Extraocular muscles were intact. Visual field was full. The patient has some pseudoptosis bilaterally. Speech was fluent. Memory was 1/3. Motor examination in the upper extremities was 5-/5. In the lower extremities it was 4 to 4+/5. Sensory examination was symmetrical for light touch and pinprick. Deep tendon reflexes were 2/4. Coordination for [id number] was borderline bilaterally. The patient had difficulty standing. She needed help to get up and was not able to maintain her posture. The patient said that she was able to go to the bathroom earlier today using a walker, but she has had difficulty standing from a chair. ASSESSMENT 1. Fluctuating confusion and change in mental status functioning. This can be associated with chronic history of dementia exacerbated by current medical conditions and change of environment. 2. Diffuse weakness affecting mainly the lower extremities. This can be related to a spinal column problem including spinal stenosis or recent injuries. Other consideration includes hydrocephalus effect on the patient's gait and walking, which could be chronic in nature. 3. We cannot rule out other myopathic disease including myasthenia gravis, which is less likely in this clinical setting due to no prior history of weakness and fatigability. PLAN 1. Obtain x-rays of the spine including cervical, thoracic and lumbar spine to rule out any fracture, dislocation or misalignment problem. 2. Continue physical and occupational therapy to improve the patient's gait and mobility. 3. If the patient's condition progresses and she has no benefit from treatment , consider obtaining lab workup for myasthenia gravis including acetylcholine receptor antibody panel. Other considerations include checking for normal pressure hydrocephalus which is less likely in this clinical setting. This can be done by obtaining a cisternogram as an outpatient. 4. Start patient on Aricept 5 mg p.o. q.h.s. to help with her dementia and memory loss symptoms. MONICAD
[2017-03-30 11:01] VITALS: PULSE 55
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
--- NOTE | 2017-03-30 13:39 | XRay Report ---
Indication: weakness PROCEDURE: XR cervical spine 2-3V: Encounter: Initial Comparison: None Findings: Evaluation is limited due to patient positioning limitations and overlapping soft tissues. Only the C1-C4 vertebra can be seen on the lateral view. No obvious acute fracture or subluxation. The odontoid view appears normally aligned. Degenerative facet and uncovertebral changes seen in the mid cervical spine. Bilateral carotid artery calcifications. Impression: Limited exam due to positioning. No acute fracture in the upper cervical spine. .
--- NOTE | 2017-03-30 13:41 | XRay Report ---
Indication: weakness PROCEDURE: XR thoracic spine 2V: Encounter: Initial Comparison: None Findings: Alignment of the thoracic spine is within normal limits. No acute fracture or subluxation seen. Post sternotomy changes and prior CABG. Mild age-appropriate degenerative disk disease. Mild bony demineralization. Impression: No acute fracture. .
--- NOTE | 2017-03-30 13:42 | XRay Report ---
Indication: weakness PROCEDURE: XR lumbar spine 2-3V: Encounter: Initial Comparison: MRI lumbar spine dated December 01, 2015 Findings: Mild dextroscoliosis. No acute fracture or subluxation. Overlying monitoring leads. Severe degenerative endplate changes at L2-L3. Mild bony demineralization. Degenerative facet disease at L4-S1. Arterial vascular calcifications. Impression: No acute fracture. Scoliosis and degenerative change. .
--- NOTE | 2017-03-30 14:58 | Discharge Summary ---
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 Left ventricular end-diastolic dimension is normal. Left ventricle wall thickness is normal. LV systolic function is normal with ejection fraction of 62%. Right atrium is normal. Right ventricle is normal. Aortic root dimension is normal. Mitral valve is morphologically normal with mild mitral regurgitation. Aortic valve is a trileaflet structure with no stenosis. Mild aortic insufficiency is present. Tricuspid valve shows mild tricuspid regurgitation with mild pulmonary hypertension with estimated pulmonary artery systolic pressure of 35. Pulmonary valve shows no pulmonary insufficiency. There is no pericardial effusion. Grossly, there is no intracardiac thrombus or mass.. Agitated saline was injected which showed no evidence of ehrou-ul-vbcf shunt. IMPRESSION 1. No evidence of vnidj-lk-jnyv shunt using agitated saline. 2. Grossly no intracardiac thrombus or mass. 3. Normal LV systolic function with ejection fraction of 62%. 4. Mild mitral regurgitation. 5. Mild tricuspid regurgitation with mild pulmonary hypertension with estimated pulmonary artery systolic pressure of 35. 6. Mild aortic insufficiency. US carotid doppler BI: Velocities in cm/sec - validated velocity measurements with angiographic measurements, velocity criteria are extrapolated from diameter data as defined by the Society of Radiologists in Ultrasound Consensus Conference Radiology 2003 ; 229;340-346. RIGHT: PSV ICA 86.8 EDV ICA 16.3 PSV CCA 78.2 EDV CCA 12.9 SVR 1.1 PSV ECA 103 ICA Diameter reduction 10%-30% (1.0-1.2 PSV<110)% LEFT: PSV ICA 84 EDV ICA 18 PSV CCA 78.2 EDV CCA 15.4 SVR 1.1 PSV ECA 65.4 ICA Diameter reduction 10%-30% (1.0-1.2 PSV<110)% The right vertebral artery is patent with cephalic flow. The left vertebral artery is patent with cephalic flow. Interval wall thickening in both common carotid arteries. Mild calcified plaque in both carotid bulbs and proximal ICAs without velocity elevation. IMPRESSION: No hemodynamically significant carotid stenosis. - Laboratory Labs: 03/30/17 04:26 03/30/17 04:26 - Radiology Radiology: CT head/brain wo con FINDINGS: Mild generalized atrophy. The ventricles are of normal size, shape, and contour for the patient's age. Physiologic basal ganglia calcifications. There are numerous areas of low attenuation in the white matter which most likely represent changes from chronic microvascular ischemia. The brainstem, cerebellum, and cerebral hemispheres otherwise have a normal morphology and CT attenuation. There is no evidence of midline displacement. No hemorrhage, signs of acute territorial stroke, mass effect, mass lesions, or edema is evident. The visualized portions of the skull base, midface, and calvarium demonstrate no abnormality. The paranasal sinuses are well aerated and free of significant disease. The tympanic and mastoid cavities appear normal. IMPRESSION: No acute intracranial abnormality or hemorrhage. MR head/brain wo/w con FINDINGS: Motion artifact limits the exam. There is a T1 isointense, T2 mild hyperintensity extra-axial lesion along the anterior aspect of the falx near the cribriform plate above the ethmoid air cells. This shows uniform post contrast enhancement with a dural tail. The mass measures 2.5 x 1.6 x 2.2 cm in size. There is no surrounding edema within the adjacent brain parenchyma. The ventricles are of normal size, shape, and contour for the patient's age. There are numerous nonspecific areas of T2-weighted and T2 FLAIR weighted signal abnormality in the deep frontoparietal white matter that most likely represent small vessel ischemic disease. This is advanced for the patient's age. The brain stem, cerebellum, and cerebral hemispheres otherwise have a normal morphologic appearance as well as MR signal intensity on all pulse sequences. There are no areas of restricted diffusion to suggest an acute infarct. There is no evidence of an intracranial hemorrhage, or hydrocephalus. The visualized portions of the orbits, calvarium, paranasal sinuses, and skull base demonstrate no significant abnormality. IMPRESSION: 1. No acute infarct. Advanced white matter disease for age likely due to chronic microvascular ischemia. 2. 2.5 cm midline frontal extra-axial mass most likely representing a benign meningioma. XR lumbar spine 2-3V Findings: Mild dextroscoliosis. No acute fracture or subluxation. Overlying monitoring leads. Severe degenerative endplate changes at L2-L3. Mild bony demineralization. Degenerative facet disease at L4-S1. Arterial vascular calcifications. Impression: No acute fracture. Scoliosis and degenerative change. XR thoracic spine 2V Findings: Alignment of the thoracic spine is within normal limits. No acute fracture or subluxation seen. Post sternotomy changes and prior CABG. Mild age- appropriate degenerative disk disease. Mild bony demineralization. Impression: No acute fracture. XR cervical spine 2-3V Findings: Evaluation is limited due to patient positioning limitations and overlapping soft tissues. Only the C1-C4 vertebra can be seen on the lateral view. No obvious acute fracture or subluxation. The odontoid view appears normally aligned. Degenerative facet and uncovertebral changes seen in the mid cervical spine. Bilateral carotid artery calcifications. Impression: Limited exam due to positioning. No acute fracture in the upper cervical spine. CT chest wo/w con: Findings: There is mild atelectasis in the lung bases. No pneumothorax or focal consolidative pneumonia. No pulmonary masses. The central airways are patent. Exam was performed in expiration. No axillary or mediastinal adenopathy. Heart is moderately enlarged without pericardial effusion. Poststernotomy changes. Moderate sized hiatal hernia. The upper abdomen shows a large nonenhancing low-attenuation right renal lesion probably representing a cyst, incompletely evaluated. Bone windows are unremarkable. Impression: No acute disease process seen in the chest. Cardiomegaly. History of Present Illness HPI: This is a 77 y/o female that somehow lives alone () and her son and daughter in law check on her. The son reports that as of Sunday she was doing well. When he saw her today she was speaking more slowly and moving more slowly. There was no focal weakness, just global weakness. The patient was brought to the ED where a comprehensive evaluation occurred including a CT head that was neg for acute disease. two LA level that were normal and not changing , ekg that demonstrated a RBBB but non ischemia with normal troponin. Labs that were completely normal except for mild hypokalemia. The patient's TSH and urine were negative. Because of a new pleureal effusion and slight concern regarding pericardial effusion a CT angio of the chest was done that as well was negative for acute disease. The ED provider read the report that stated no heart failure, no pericardial effusion. There was no mention of an effusion in the left lung. At this time the patient is to be admitted for further evaluation of change in mental status from a robust baseline. Objective Vital signs: Temperature 97.3 F 03/30/17 08:00 Pulse Rate 55 L 03/30/17 08:00 Respiratory Rate 16 03/30/17 08:00 Blood Pressure 158/72 H 03/30/17 08:00 Pulse Oximetry 97 03/30/17 08:00 Height/Weight/BMI: Height 1.75 m Weight 83.4 kg Body Mass Index 28.5 Hospital Course This is a general summary of the patient's hospital course. For more details refer to the complete medical record. Hospital course: Larissa was admitted to observation status for weakness, r/o stroke on 03/29/17. Stroke w/u was pursued, CT/MRI negative for acute stroke; Carotid doppler failed to show hemodynamically significant stenosis. Echo showed an EF of 62%, mild MR, mild TR, mild PH, mild AI, and no evidence of shunt, thrombus or mass. Consults placed for Dr. Curtis and PT/OT. Dr. Curtis recommended xrays of C/ T/L spine d/t leg weakness - L spine x-rays showed L2-L3 severe endplate disease but this was similar to MRI of her L-spine done in Nov, 2015 and did not recommend any new treatment. Dr. Salcido also recommended Aricept HS for suspected dementia, and this was approved by Larissa and her daughter. She had a low-normal K on admission and this was corrected with oral potassium which were not continued on discharge. Home discharge was not felt to be safe b/c of frequent falls, possible hallucinations, behavioral changes, medication concerns , mobility, urine/bowel incontinence, and overall safety. She was accepted to SNF at [facility], where therapy will be continued. Consider MATIAS altamirano there. Medication changes at discharge included discontinuation of Reglan, amitriptyline, Fiorinal, and alprazolam. In addition, with hx of constipation and need for regular laxative use, MiraLAX was started every other day. Aricept 5 mg HS was also continued. Recommend f/u with Dr. De La Torre in 1 week. Will recheck BMP in 1 week as well. F/U with Dr. Curtis in 4 weeks. 03/30/2017-I reviewed this chart, the patient history, and the MEDICAL LABORATORY SCIENTIST's/PA's documented findings as above. We discussed and formulated the assessment and plan as above with the additions below.-Dr. Ni The patient was seen in her room this afternoon accompanied by her daughter. Patient states she's feeling okay. On exam she is alert. She continues to have some confusion which is likely secondary to dementia. Chest is clear to auscultation. Cardiovascular reveals a regular rate and rhythm. Abdomen is soft and nontender. Extremities are free of edema. The patient was accepted to [facility] nursing for PT and OT for strengthening. We are discontinuing several of her medications above which could contribute to her confusion. Her daughter did bring her bottle of alprazolam from home. It was dispensed in October 2016 and there were still some pills left in the bottle. It does not appear that the patient has been taking this very frequently. We will discontinue it at this time. The patient states she sometimes has difficulty "settling down" at that time. We'll need to see if she does okay without amitriptyline at bedtime. If she has trouble with insomnia , she may need an alternative medication to help with sleep. She will be started on Aricept daily for probable dementia. She is agreeable to follow-up with Dr. Curtis in 4 weeks regarding her weakness and dementia. I will discuss hospital findings and discharge plans with Dr. De La Torre today, if he is available. Time spent with patient: greater than 35 minutes Discharge Plan - Discharge Disposition Discharge Date: 03/30/17 *Condition: Stable Reason For Visit (Visit label in EMR): Weakness - Discharge Medications *Discharge Medications: New Acetaminophen [Tylenol] 325 - 650 mg PO Q5H PRN tab PRN Reason: Discomfort Donepezil [Aricept] 5 mg PO HS tab PEG 3350 17gm PACKET [Miralax] 17 gm PO Q2D #30 packet Continue Vitamin E Mixed [Vitamin E] 400 unit PO DAILY #0 Vitamin B Complex Vit C No.3 [B Complex with Vitamin C] 1 tab PO DAILY #0 Fluticasone Propionate [Flonase Allergy Relief] 1 puff EA NOSTRIL DAILY PRN # 0 PRN Reason: PRN ORDERS Calcium Carbonate [Calcium] 500 mg PO DAILY #0 Fluoxetine HCl 40 mg PO DAILY #0 omega-3 fatty acids 1,000 mg capsule 2,000 mg PO BID #0 cap aspirin 81 mg tablet,delayed release 81 mg PO DAILY tab Maxzide-25mg (triamterene 37.5 mg-hydrochlorothiazide 25 mg) tablet 0.5 tab- cap PO QAM tab cholecalciferol (vitamin D3) 2,000 unit capsule 2,000 unit PO DAILY cap Nitrostat (nitroglycerin) 0.4 mg sublingual tablet 0.4 mg SL Q5M PRN #25 tab PRN Reason: chest pain Cozaar (losartan) 50 mg tablet 50 mg PO BID #180 tab Calan SR (verapamil ER (SR)) 180 mg tablet 180 mg PO BID #180 tab Advil (Ibuprofen) 200 mg capsule 400 mg PO BID PRN #0 cap PRN Reason: PAIN Lopressor (metoprolol tartrate) 100 mg tablet 50 mg PO BID #90 tab Zocor (simvastatin) 40 mg tablet 40 mg PO HS #90 tab Discontinued Meclizine HCl [Motion Sickness Relief] 25 mg PO PRN PRN PRN Reason: Motion Sickness Codeine/Butalbital/ASA/Caffein [Fiorinal with Codeine #3 Cap] 1 cap PO QID PRN #0 PRN Reason: PRN ORDERS amitriptyline 25 mg tablet 25 mg PO HS #90 tab metoclopramide 5 mg tablet 5 mg PO .COMPLEX PRN PRN Reason: Acid Reflux Xanax (alprazolam) 0.5 mg tablet 0.5 mg PO TID PRN #30 tab PRN Reason: ANXIETY - Discharge Packet/Instructions *Diet: Regular diet with regular thin liquids and chopped meats. *Activity: PT/OT evaluation. History of frequent falls so please monitor appropriately and encourage FWW use all the time. *Pain Management/Treatment: Tylenol/Ibuprofen PRN. *Wound Care: N/A *Expected Signs/Symptoms: Leg weakness will hopefully improve with therapy. Confusion. Left sided posterior rib pain from recent fall (bruising evident). *Notify Physician if: Fever, change in mental status, difficulty breathing, chest pain, stroke-like symptoms, syncope, or any concerns. *During Business Hours Contact: [facility] *After Business Hours Contact: The on-call provider for [facility]. *Pending Lab/Results: No Pending Lab Outpatient Orders: BMP - Basic Metabolic - [facility] Time Frame: 1 Week, Location: None Selected - Referrals/Follow Up *Referrals/Follow Up: Riley De La Torre MD [Primary Care Provider] - 1 Week Amberly Curtis MD [Physician] - 1 Month - Patient Handouts - Dismissal Complete Discharge Instructions are:: Complete Physician Narrative - Narrative Attestation Narrative: Date: 03/30/17 Time: [id number]
--- NOTE | 2017-03-30 15:28 | Extended Care Facility Orders ---
<Kerry Ren - Last Filed: 03/30/17 15:26> Admission Orders Admit to:: Prison Allergies/Adverse Reactions: Allergies gabapentin Allergy (Intermediate, Verified 03/29/17 10:20) hydrocodone Allergy (Intermediate, Verified 03/29/17 10:20) rash MELITA Inhibitors Allergy (Unknown, Verified 03/29/17 10:20) atorvastatin Allergy (Unknown, Verified 03/29/17 10:20) ezetimibe Allergy (Unknown, Verified 03/29/17 10:20) levofloxacin [From Levaquin] Adverse Reaction (Intermediate, Verified 03/29/17 10:20) tendonitis Sulfa (Sulfonamide Antibiotics) Adverse Reaction (Intermediate, Verified 10:20) GI issues tramadol Adverse Reaction (Intermediate, Verified 03/29/17 10:20) syncope?, nausea Admitting Diagnosis: Weakness Admitting Physician: Shannan Ni MD Attending Physician: Shannan Ni MD Code Status: Full Code Anticiapted Length of Stay: 30 days or less Rehab Potential: fair Rehab Prognosis: fair Diet: Regular diet with regular thin liquids and chopped meats. May use Facility Protocol or Standing Orders: Yes May have flu vaccine: Yes Evaluations/Treatment: PT, OT, as needed Prison Certification: I certify that SNF services are required to be given on an Inpatient basis because of the patient's need for correction care on a continuing basis for the condition(s) for which she received inpatient hospital services prior to her transfer to the SNF. SNF inpatient care is necessary for the following reasons: Indication for Prison: Med Admininistration, Other (PT/OT for bilateral leg weakness and impaired mobility) - Additional Information In Event of Arrest: Start CPR,call 911,send patient to the ER Laboratory/Radiology: Please check a BMP in 1 week to follow up on low potassium (ICD 10 code: E87.6) Fax results to Dr. De La Torre. Referrals: Riley De La Torre MD [Primary Care Provider] - 1 Week Amberly Curtis MD [Physician] - 1 Month <Shannan Ni - Last Filed: 03/30/17 15:34> Admission Orders Admitting Diagnosis: Weakness Admitting Physician: Shannan Ni MD Attending Physician: Shannan Ni MD Code Status: Full Code Diet: 03/29/17 Lunch Regular Diet [DIET] Diet Modifications: Fluid Consistency: REGLIQU Food Consistency: CHMEAT Evaluations/Treatment: PT, OT (The patient does need PT and OT for weakness and frequent falls) Prison Certification: I certify that SNF services are required to be given on an Inpatient basis because of the patients need for correction care on a continuing basis for the condition(s) for which he/she received inpatient hospital services prior to his/her transfer to the SNF. SNF inpatient care is necessary for the following reasons
[2017-03-30] MEDS ORDERED: DONEPEZIL 5 MG TABLET PO SCH (21:00)
== END 2017-03-30 16:00 ==
LOC: ED 21:43 → MED 21:43 → SUATTDRO 03-29 04:08 → MED 03-29 04:30
PROVIDERS: ADMIT Emergency Medicine; ATTEND Internal Medicine